=== PATIENT | female | born 1945 | race Caucasian/White ===

== ENCOUNTER 2019-01-03 14:15 | Emergency (ER) | payer OTHER ==
[2019-01-03] MEDS ORDERED: DERMABOND SKIN ADHESIVE TOP ONE (16:04)
[2019-01-03] MEDS ORDERED: TETANUS & DIPHTHERIA TOX,ADULT 0.5 ML VIAL ONE (16:05)
--- NOTE | 2019-01-03 16:07 | EDPHYS ---
Physician Documentation [facility] Name: Daya Liriano Age: 73 yrs Sex: Female : 1945 Arrival Date: 01/03/2019 Time: 14:15 Bed 25 Private MD: Jose Kaiser E ED Physician Wayne Atkinson HPI: 01/03 16:01 This 73 yrs old Female presents to ER via Ambulatory with complaints of jr8 Laceration - Wrist. 16:01 The patient or guardian reports a laceration, clean, 2.5 cm(s), simple. The complaints jr8 affect the left wrist diffusely. Onset: The symptoms/episode began/occurred acutely, today. Modifying factors: The symptoms are alleviated by nothing, the symptoms are aggravated by nothing. Associated signs and symptoms: The patient has no apparent associated signs or symptoms. The patient has not experienced similar symptoms in the past. The patient has not recently seen a physician. Was cutting boxes and accidently cut ventral aspect of left wrist with preparing box tender . Historical: - Allergies: 14:40 Hydrocodone-Acetaminophen; hj 14:40 Aspirin; hj - Home Meds: 14:40 simvastatin 10 mg Oral tab 1 tab once daily [Active]; Nexium 20 mg Oral cpDR 1 cap once hj daily [Active]; Estradiol Oral [Active]; Doxycycline Oral [Active]; - PMHx: 14:40 Hypertension; Hyperlipidemia; hj - PSHx: 14:40 Hysterectomy; back; hj - Immunization history:: Adult Immunizations up to date. - Social history:: Smoking status: Patient/guardian denies using tobacco, Patient/guardian denies using alcohol. - Ebola Screening: : Patient negative for fever greater than or equal to 101.5 degrees Fahrenheit, and additional compatible Ebola Virus Disease symptoms Patient denies exposure to infectious person Patient denies travel to an Ebola-affected area in the 21 days before illness onset. ROS: 16:01 Eyes: Negative for injury, pain, redness, and discharge, ENT: Negative for injury, jr8 pain, and discharge, Neck: Negative for injury, pain, and swelling, Cardiovascular: Negative for chest pain, palpitations, and edema, Respiratory: Negative for shortness of breath, cough, wheezing, and pleuritic chest pain, Abdomen/GI: Negative for abdominal pain, nausea, vomiting, diarrhea, and constipation, Back: Negative for injury and pain, MS/Extremity: Negative for injury and deformity, Neuro: Negative for headache, weakness, numbness, tingling, and seizure. 16:01 Skin: Positive for laceration(s), of the left arm. Exam: 16:01 Constitutional: This is a well developed, well nourished patient who is awake, alert, jr8 and in no acute distress. Respiratory: Lungs have equal breath sounds bilaterally, clear to auscultation and percussion. No rales, rhonchi or wheezes noted. No increased work of breathing, no retractions or nasal flaring. Abdomen/GI: Soft, non-tender, with normal bowel sounds. No distension or tympany. No guarding or rebound. No evidence of tenderness throughout. MS/ Extremity: Pulses equal, no cyanosis. Neurovascular intact. Full, normal range of motion. Neuro: Awake and alert, GCS 15, oriented to person, place, time, and situation. Cranial nerves II-XII grossly intact. Motor strength 5/5 in all extremities. Sensory grossly intact. Cerebellar exam normal. Normal gait. 16:01 Skin: injury, laceration(s), the wound is approximately 2.5 cm(s), with a depth of .3 cm(s), of the ventral aspect left wrist, that can be described as no foreign body, linear, without bleeding. Vital Signs: 14:41 BP 146 / 62; Pulse 88; Resp 18; Temp 98.1(O); Pulse Ox 98% ; Weight 60.33 kg; Height 5 hj ft. 2 in. (157.48 cm); Pain 6/10; 16:26 BP 138 / 66 RA; Pulse 76; Resp 17 S; Pulse Ox 99% on R/A; rv 14:41 Body Mass Index 24.33 (60.33 kg, 157.48 cm) hj Laceration: 16:01 Wound Repair of 2.5cm ( 1.0in ) subcutaneous laceration to left arm. Linear shaped.. jr8 Distal neuro/vascular/tendon intact. Wound prep: Extensive cleansing with hibiclenz, Wound explored extensively. Skin closed with 2 thin layer Adhesive skin closure using Dermabond. Patient tolerated well. MDM: 15:39 Patient medically screened. jr8 16:04 Data reviewed: vital signs, nurses notes, and as a result, I will discharge patient. jr8 Data interpreted: Pulse oximetry: on room air is 98 %. Interpretation: normal. Counseling: I had a detailed discussion with the patient and/or guardian regarding: the historical points, exam findings, and any diagnostic results supporting the discharge/admit diagnosis, the need for outpatient follow up, a family practitioner, to return to the emergency department if symptoms worsen or persist or if there are any questions or concerns that arise at home. 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 Exp: rv 11/14/2020. Lot #: [id number]. } Route: IM; Site: left deltoid; 16:28 Follow up: Response: No adverse reaction rv Disposition: 17:04 Co-signature as Attending Physician, Wayne Atkinson MD I agree with the assessment and kdr plan of care. Disposition: 01/03/19 16:06 Discharged to Home. Impression: Laceration without foreign body of left wrist. - Condition is Stable. - Discharge Instructions: Tissue Adhesive Wound Care, Stitches, Dahlia, or Adhesive Wound Closure. - Medication Reconciliation Form, Thank You Letter, Antibiotic Education, Prescription Opioid Use form. - Follow up: Jose Kaiser MD; When: 5 - 6 days; Reason: Wound Recheck, Recheck today's complaints, Continuance of care, Re-evaluation by your physician. - Problem is new. - Symptoms have improved. Signatures: Wayne Atkinson MD MD [facility] Je Davison PA PA jr8 Chintan Garcia RN RN Orlin Escudero RN RN rv Corrections: (The following items were deleted from the chart) 16:28 16:06 01/03/2019 16:06 Discharged to Home. Impression: Laceration without foreign body rv of left wrist. Condition is Stable. Forms are Medication Reconciliation Form, Thank You Letter, Antibiotic Education, Prescription Opioid Use. Follow up: Jose Kaiser; When: 5 - 6 days; Reason: Wound Recheck, Recheck today's complaints, Continuance of care, Re-evaluation by your physician. Problem is new. Symptoms have improved. jr8
--- NOTE | 2019-01-03 16:07 | ER ---
Nurse's Notes [facility] Name: Daya Liriano Age: 73 yrs Sex: Female : 1945 Arrival Date: 01/03/2019 Time: 14:15 Bed 25 Private MD: Jose Kaiser E Diagnosis: Laceration without foreign body of left wrist Presentation: 01/03 14:36 Presenting complaint: Patient states: i cut my L lower arm with a box knife and it hj happened a hour ago;. Transition of care: patient was not received from another setting of care. Complicating Factors: There are no complicating factors for this patient. Onset of symptoms was January 03, 2019. Risk Assessment: Do you want to hurt yourself or someone else? Patient reports no desire to harm self or others. Initial Sepsis Screen: Does the patient meet any 2 criteria? No. Patient's initial sepsis screen is negative. Does the patient have a suspected source of infection? No. Patient's initial sepsis screen is negative. Care prior to arrival: None. 14:36 Method Of Arrival: Ambulatory 14:36 Acuity: BAY 4 hj 14:43 Note applied dressing on the lacerated area;. hj Triage Assessment: 14:40 General: Appears in no apparent distress. uncomfortable, Behavior is calm, cooperative, hj appropriate for age. Pain: Complains of pain in dorsal aspect of left forearm. Injury Description: Laceration. Historical: - Allergies: 14:40 Hydrocodone-Acetaminophen; hj 14:40 Aspirin; hj - Home Meds: 14:40 simvastatin 10 mg Oral tab 1 tab once daily [Active]; Nexium 20 mg Oral cpDR 1 cap once hj daily [Active]; Estradiol Oral [Active]; Doxycycline Oral [Active]; - PMHx: 14:40 Hypertension; Hyperlipidemia; hj - PSHx: 14:40 Hysterectomy; back; hj - Immunization history:: Adult Immunizations up to date. - Social history:: Smoking status: Patient/guardian denies using tobacco, Patient/guardian denies using alcohol. - Ebola Screening: : Patient negative for fever greater than or equal to 101.5 degrees Fahrenheit, and additional compatible Ebola Virus Disease symptoms Patient denies exposure to infectious person Patient denies travel to an Ebola-affected area in the 21 days before illness onset. Screenin:41 Abuse screen: Denies threats or abuse. Denies injuries from another. Nutritional hj screening: No deficits noted. Tuberculosis screening: No symptoms or risk factors identified. Fall Risk None identified. Assessment: 14:41 Musculoskeletal: No signs and/or symptoms reported regarding the musculoskeletal hj system. Injury Description: Laceration. 15:12 General: Appears in no apparent distress. comfortable, Behavior is calm, cooperative. rv Pain: Complains of pain in left arm. Neuro: Level of Consciousness is awake, alert, obeys commands, Oriented to person, place, time, situation. Cardiovascular: Capillary refill < 3 seconds. Respiratory: Airway is patent. GI: No signs and/or symptoms were reported involving the gastrointestinal system. : No signs and/or symptoms were reported regarding the genitourinary system. EENT: No signs and/or symptoms were reported regarding the EENT system. Derm: Wound noted left arm. Injury Description: Laceration sustained to left arm is clean, 0.5 to 2.5 cm long, not bleeding. Vital Signs: 14:41 BP 146 / 62; Pulse 88; Resp 18; Temp 98.1(O); Pulse Ox 98% ; Weight 60.33 kg; Height 5 hj ft. 2 in. (157.48 cm); Pain 6/10; 16:26 BP 138 / 66 RA; Pulse 76; Resp 17 S; Pulse Ox 99% on R/A; rv 14:41 Body Mass Index 24.33 (60.33 kg, 157.48 cm) ED Course: 14:15 Patient arrived in ED. as 14:17 Jose Kaiser MD is Private Physician. as 14:37 Triage completed. hj 14:41 Arm band placed on right wrist. hj 14:42 Patient has correct armband on for positive identification. Bed in low position. Call hj light in reach. Side rails up X 1. Adult w/ patient. 14:59 Je Davison PA is PHCP. jr8 14:59 Wayne Atkinson MD is Attending Physician. jr8 15:02 Orlin Escudero RN is Primary Nurse. rv 15:15 Wound care: to laceration located on left arm was cleaned with Hibiclens, Patient rv tolerated well. 15:31 Orlin Escudero RN is Primary Nurse. rv 16:06 Jose Kaiser MD is Referral Physician. jr8 16:26 Assist provider with laceration repair on left arm that was 2.5 cm. or less using rv Dermabond. Performed by Je VIEIRA Dressed with 4X4s, Patient tolerated well. Patient did not have IV access during this emergency room visit. 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 Exp: rv 11/14/2020. Lot #: [id number]. } Route: IM; Site: left deltoid; 16:28 Follow up: Response: No adverse reaction rv Outcome: 16:06 Discharge ordered by . jr8 16:26 Discharged to home ambulatory. rv 16:26 Condition: good 16:26 Discharge instructions given to patient, family, Instructed on discharge instructions, follow up and referral plans. wound care, Demonstrated understanding of instructions, follow-up care, wound care. 16:28 Patient left the ED. rv Signatures: Cynthia Mitchell Josh, PA PA jr8 Chintan Garcia, DARYL RN Orlin Alcala RN RN rv Corrections: (The following items were deleted from the chart) 16:28 16:26 No provider procedures requiring assistance completed. rv rv
== END 2019-01-03 16:28 | disposition home or self-care (01) ==
LOC: ER 14:15
PROC: 0JQH0ZZ Repair Left Lower Arm Subcutaneous Tissue and Fascia, Open Approach (ICD-10-PCS; principal; 2019-01-03)
DX: S61.512A Laceration without foreign body of left wrist, initial encounter (principal); W45.8XXA Other foreign body or object entering through skin, initial encounter; I10 Essential (primary) hypertension; E78.5 Hyperlipidemia, unspecified; Z88.6 Allergy status to analgesic agent; Z88.5 Allergy status to narcotic agent
CPT/HCPCS: 90714; 99283